=== PATIENT | male | born 1985 | race Caucasian/White ===

== ENCOUNTER 2016-09-13 12:13 | Emergency (ER) | payer OTHER ==
[2016-09-13 12:20] VITALS: BP 167/84; PULSE 83; RESP 17; TEMP 97.7; O2SAT 95
--- NOTE | 2016-09-13 12:41 | UCPHY ---
H & P Patient Type: Established Chief Complaint Nursing Narrative: lesion to genital area Time Seen by Provider: 09/13/16 12:27 HPI/ROS: Chief complaint: Lesion on penis HPI 30-year-old male presenting with 3 days of lesion on the tip of his penis. It is mildly tender. Patient states that he has never been sexually active. He emphatically denies ever having sexual contact with another person. He does masturbate, the last time was about a week ago. There is no blistering. He has not had any urethral discharge. There is no discharge from the site.. He is not circumcised. Has not had any swelling or redness. No itching. He states he does using gold Stevens ointment in the wintertime when it is dry. No abdominal pain. He has an appointment with urologist next week but became concerned is presenting for further evaluation. ROS: 10 point Review of Systems is negative except as noted in the HPI. Physical exam: General: Awake, alert, no acute distress Genital: uncircumcised male. There is a small 3 x 4 cm mildly pinkish lesion to the glans of his penis on the dorsum. There is no erythema. There is no discharge. A his testicles are descended. There is no tenderness. There is no erythema. There is no ulceration. There is no inguinal lymphadenopathy. - Personal History Current Tetanus/Diphtheria Vaccine: Unsure - Medical/Surgical History Hx Asthma: No Hx Chronic Respiratory Disease: No Hx Diabetes: No Hx Cardiac Disease: No Hx Renal Disease: No Hx Cirrhosis: No Hx Alcoholism: No Hx HIV/AIDS: No Hx Splenectomy or Spleen Trauma: No Other PMH: insomnia/ kidney stones - Family History Significant Family History: No pertinent family hx - Social History Smoking Status: Never smoked Constitutional: Initial Vital Signs Temperature (C) 36.5 C 09/13/16 12:17 Heart Rate 83 09/13/16 12:17 Respiratory Rate 17 09/13/16 12:17 Blood Pressure 167/84 H 09/13/16 12:17 O2 Sat (%) 95 09/13/16 12:17 O2 Delivery Mode Room Air Allergies/Adverse Reactions: No Known Allergies Allergy (Verified 09/13/16 12:14) Home Medications: Medication Instructions Recorded diphenhydrAMINE 09/13/16 Medical Decision Making ED Course/Re-evaluation: 30-year-old male with a small lesion to the glans of his penis. It is nontender. Non erythematous. Is not ulcerated. He has not had any urethral discharge. He has no risk factors for STDs as the patient has never been sexually active he. I have recommended that he follow up with his urology appointment next week as scheduled. There is no signs of infection at this time. I have offered her urethral swab which he is declining at this time. In the meantime he can start Lotrimin as a possible antifungal with as he is uncircumcised. He will follow up with Urology next week for further evaluation. Departure - Departure Disposition: Home, Routine, Self-Care Clinical Impression: Skin lesion Condition: Good Instructions: Acute Rash (ED) Additional Instructions: You may use qpah-wih-jreufsa Lotrimin on the affected area twice a day. Follow up with Urology as scheduled next week. - PQRS PQRS Measurement: NA
== END 2016-09-13 12:45 | disposition home or self-care (01) ==
LOC: CED 12:13
DX: N48.89 Other specified disorders of penis (principal)
CPT/HCPCS: 99213-PO; G0463-PO

== ENCOUNTER → 2018-07-27 | Outpatient (CLI) | payer OTHER | LOC: CIMAGING 18:17 | PROVIDERS: ATTEND Nurse Practitioner Family | DX: R07.9 Chest pain, unspecified (principal) | CPT/HCPCS: 71046-PO ==

== ENCOUNTER 2018-08-01 02:57 | Emergency (ER) | payer OTHER ==
--- NOTE | 2018-08-01 02:59 | EDPHY ---
H & P Time Seen by Provider: 08/01/18 02:58 HPI/ROS: CHIEF COMPLAINT: Left axillary pain and shortness of breath, unable to sleep HISTORY OF PRESENT ILLNESS: This is a 32-year-old male with episodic hypertension and chronic insomnia who takes both Benadryl and melatonin for sleep. This past week he has been having pain in the left axilla that simply would not go away. He was originally seen some 6 days ago at 1 of the local urgent cares and had follow-up some 4 days ago by his PCP. At the urgent care he had a negative chest x-ray as well as a EKG and blood work. At his PCPs office they started him on new blood pressure medicine. He is also taking aspirin daily in the anticipation of this being a cardiac condition. He has not been taking ibuprofen, though that is his usual go to Pain itself started 6 7 days ago. It has been the left axilla and lateral upper chest wall. It is not migratory. It is not worse when he takes a breath nor is it pleuritic. Is also not worse if he lays on his side or lifts his arm above his head or twists or bends. Furthermore is not worse when he is getting in of the car or putting his shirt on. However he has also noted that when he lays down the pain is more noticeable though it is not pleuritic. He is also having a little bit of shortness of breath when he lays down however is unable to characterize as to whether it is worse with his breathing or pleuritic in nature as it is not. Further he has not been having any cough or phlegm or fevers or chills or wheezing. No one else is ill. No diaphoresis P: Not worse with breathing or Movement of the chest wall Q: Achiness R: No radiation S: Mild to moderate T: Persistent for a full week Cardiac Risk Factors: DM: No - positive in his mother HTN: Yes High Chol: No Smoking: No Family History: No Obesity: Yes Aotic dissection RF: Hypertension yes Known Aortic aneurysm No Bicuspid aortic Valve unknown Aortic Valve disease No Family Hx of aortic dieseae No Polycystic Kidney Disease No Collagen vascular disease No Aortic Regurg Murmur No Aortic instrumentation recent No Blunt trauma, recent No PE/DVT risk factors Prior DVT/PE: No - mother had 1 at the time of a surgery some 30 years ago Immobilization/Bed Rest No Splint/Cast: No Surgery, recently: No Family history of hypercoaguable syndrome: No Unilateral leg swelling: No Obesity: No REVIEW OF SYSTEMS: Constitutional: No fever, no chills. Eyes: No discharge No diplopia ENT: No sore throat. Cardiovascular: See above Respiratory: See above Gastrointestinal: No nausea vomiting or diarrhea. No abdominal pain. Genitourinary: No hematuria or frequency. Musculoskeletal: No back pain. Skin: No rashes. Neurological: No numbness or tingling or radiation down the arm [A 10 system review of systems was performed and is negative except for the noted findings in the HPI. Source: Patient Exam Limitations: No limitations - Personal History Current Tetanus/Diphtheria Vaccine: Yes - Medical/Surgical History Hx Asthma: No Hx Chronic Respiratory Disease: No Hx Diabetes: No Hx Cardiac Disease: No Hx Renal Disease: No Hx Cirrhosis: No Hx Alcoholism: No Hx HIV/AIDS: No Hx Splenectomy or Spleen Trauma: No Other PMH: insomnia/ kidney stones - Family History Significant Family History: No pertinent family hx (Mother had a PE at the time of surgery) - Social History Smoking Status: Never smoked Tobacco Use: Cigar (Regularly) Alcohol Use: None Drug Use: None - Physical Exam Exam: General Appearance: Alert, no distress. Afebrile. Normal phonation. No respiratory distress. No diaphoresis Eyes: Pupils equal and round no pallor or injection. No icterus ENT, Mouth: Mucous membranes moist Pharynx without erythema or exudate. TM Clear. Neck: No adenopathy. Supple. No JVD. Trachea in midline. Respiratory: There are no retractions, lungs are clear to auscultation. Chest wall: Nontender to palpation. No crepitus. Likewise will to the shoulder against resistance does not cause any worsening of the pain. Cardiovascular: Regular rate and rhythm. No murmur Abdomen: Soft and nontender, no masses, bowel sounds normal. Femoral pulses equal. Neurological: Ox3. No motor weakness. Sensation intact. Gait nl. No aggravation of the pain with axial loading of the neck as well as Spurling's sign negative. Skin: Warm and dry, no rashes. Musculoskeletal: No joint swelling. Extremities: No edema. Homans sign negative. No cords. Psychiatric: Normal affect. Patient is oriented X 3. There is no agitation Constitutional: Initial Vital Signs Temperature (C) 36.9 C 08/01/18 03:08 Heart Rate 74 08/01/18 03:08 Respiratory Rate 16 08/01/18 03:08 Blood Pressure 148/116 H 08/01/18 03:08 O2 Sat (%) 97 08/01/18 03:08 O2 Delivery Mode Room Air Allergies/Adverse Reactions: No Known Allergies Allergy (Verified 09/13/16 12:14) Home Medications: Medication Instructions Recorded diphenhydrAMINE 09/13/16 LORazepam [Ativan] 1 tab PO Q8 #20 tablet 08/01/18 Medical Decision Making - Diagnostics EKG Interpretation: EKG: Interpreted by me contemporaneously. Rhythm: Normal sinus rhythm. Heart rate 65 QTc 411 QRS: normal STT segment: Early repolarization T Waves: Normal Q waves none Summary: Normal Ekg, age-related normal early repolarization Imaging Results: Chest x-ray: Two view chest. Interpreted by [me, contemporaneously]. Films [viewed] by me on the PACS system. Normal mediastinum. Normal lung loja. No effusions. Normal chest. No signs of apical or axillary scarring ED Course/Re-evaluation: The patient is already taken aspirin thus none was given. His blood pressure improved spontaneously Laboratory evaluation include the following: Normal CBC Normal chemistries normal LFTs Normal troponin Normal D-dimer In view of the flattening of the diaphragms on his chest x-ray a peak flow was performed: This result was actually above predicted. We sat down and talked about taking some medications to serve as a anti- inflammatory and muscle relaxer for a muscular problem. 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 Thereby perhaps that is the underlying etiology. He is to forego that activity in the near term. Differential Diagnosis: Differential diagnosis includes but is not limited to the following: ACS, myocardial infarction, pneumothorax, pleurisy, pulmonary embolus, CHF, Pneumonia, bronchospasm, Asthma, anxiety, muscle strain, cervical radiculopathy. - Data Points Medications Given: Discontinued Medications Lorazepam (Ativan 1 Mg Prepack#4) 1 btl TAKEHOME EDNOW ONE Stop: 08/01/18 04:29 Last Admin: 08/01/18 05:04 Dose: 1 btl Point of Care Test Results: CBC CBC Collection Date 08/01/18 CBC Collection Time 03:10 WBC 9.2 RBC 5.7 HGB 17.4 HCT 47.0 PLT 190 Neut # 5.5 Neut 59.8 LYMPH # 2.8 LYMPH 30.0 Other WBC # 0.9 Other WBC 10.2 MCV 82.5 Chemistry 08/01/18 08/01/18 03:39 03:22 POC Sodium 144 mEq/L mEq/L (135-145) POC Potassium 3.6 mEq/L mEq/L (3.3-5.0) POC Chloride 109.0 mEq/L mEq/L (97-110) POC Total CO2 29 mEq/L mEq/L (22-31) POC BUN 13 mg/dL mg/dL (7-23) POC Creatinine 0.7 mg/dL mg/dL (0.7-1.3) POC Glucose 96 mg/dL mg/dL (70-100) POC Calcium 9.7 mg/dL mg/dL (8.5-10.4) POC Total Bilirubin 1.0 mg/dL mg/dL (0.1-1.4) POC AST 25 IU/L IU/L (17-59) POC ALT 23 IU/L IU/L (21-72) POC Alk Phosphatase 48 IU/L IU/L (38-126) POC Troponin I 0.01 ng/mL ng/mL (0.00-0.08) POC Total Protein 7.0 g/dL g/dL (6.3-8.2) POC Albumin 4.1 g/dL g/dL (3.5-5.0) D-Dimer D-Dimer Collection Date 08/01/18 D-Dimer Collection Time 03:10 D-Dimer (ng/ml) <100 Departure - Departure Disposition: Home, Routine, Self-Care Clinical Impression: Chest pain Qualifiers: Chest pain type: other chest pain Qualified Code(s): R07.89 - Other chest pain Muscle strain of chest wall Qualifiers: Encounter type: initial encounter Qualified Code(s): S29.011A - Strain of muscle and tendon of front wall of thorax, initial encounter Condition: Good Instructions: Muscle Strain (ED) Additional Instructions: Rest the area. No lift more than #20. Return if fever or sweat. Meds: Ibuprofen OTC 800 mg 3 times a day with food. Ativan 1 mg 3 times a day - It is important you do not drive or drink or worker machinery for at least 24 hours after your last dose Recheck with her family doctor in 7-14 days Referrals: Patient,NotPresent [Unknown] - As per Instructions Prescriptions: LORazepam [Ativan] 1 tab PO Q8 #20 tablet
[2018-08-01 04:24] VITALS: BP 134/88
[2018-08-01] MEDS ORDERED: LORAZEPAM 1 MG PREPACK#4 BTL TAKEHOME ONE (04:28)
--- NOTE | 2018-08-01 04:55 | CPEKG ---
Test Reason : OPEN Blood Pressure : / mmHG Vent. Rate : 065 BPM Atrial Rate : 065 BPM P-R Int : 144 ms QRS Dur : 112 ms QT Int : 395 ms P-R-T Axes : 023 015 037 degrees QTc Int : 411 ms Sinus rhythm Normal early repol pattern Confirmed by Tomás Samson ([id number]) on 08/01/2018 4:55:06 AM Referred By: Confirmed By:Tomás Samson
--- NOTE | 2018-08-04 06:07 | CPEKG ---
Test Reason : OPEN Blood Pressure : / mmHG Vent. Rate : 072 BPM Atrial Rate : 073 BPM P-R Int : 145 ms QRS Dur : 118 ms QT Int : 412 ms P-R-T Axes : 038 018 042 degrees QTc Int : 451 ms Sinus rhythm Nonspecific intraventricular conduction delay Confirmed by Nav Barreto ([id number]) on 08/04/2018 6:06:49 AM Referred By: Confirmed By:Nav Barreto
== END 2018-08-01 05:10 | disposition home or self-care (01) ==
LOC: CED 02:57
DX: S29.011A Strain of muscle and tendon of front wall of thorax, initial encounter (principal); R07.89 Other chest pain; X58.XXXA Exposure to other specified factors, initial encounter; Y92.9 Unspecified place or not applicable; Y93.9 Activity, unspecified; Y99.9 Unspecified external cause status
CPT/HCPCS: 71046-PO; 80053-PO; 84484-PO